=== PATIENT | female | born 1985 | race Caucasian/White ===

== ENCOUNTER → 2020-05-21 | Outpatient (CLI) | payer OTHER ==
[~2020-05-21] MED LIST: AMITRIPTYLINE H10 M1 PO; AMOXICILLIN 50500 M1; FLUOXETINE HCL40 MG PO; NORCO 5-325 TA1 EACH PO; PERCOCET 5-3251 EACH PO; VENLAFAXIN75 MG/1 T1 PO; XANAX1 MG PO
--- NOTE | 2020-06-05 19:58 | MCT ---
[facility] [place] [place] [address] METHACHOLINE CHALLENGE TEST Name: ILYA MARS Room #: [facility]#: [id number] Admission: 05/21/20 Attend Phys: Rik Yeboah MD Discharge: Date of : 81 Report #: [id number] THIS REPORT FOR: //name// COPIES FOR: AGE: 34 SEX/RACE: F/C Height: in Exam Date: Weight: lbs BTPS: X >> PRE BRONCHODILATOR: PREDICTED BEST %PRED FORCED VITAL CAPACITY (FRC) L LPM % FORCED EXP VOL/SEC (FEV1) L FEV/FVC % MAX MID-EXP FLOW (FEF 25-75) L/SEC L/SEC % PEAK EXP FLOW RATE (FEF MAX) L/MIN L/MIN MED-VC RATIO (FEF 50/FEF 50) .09 Baseline: Phenol Saline Level 1: 0.025 mg/ml BEST %PRED %CHANGE BEST %PRED %CHANGE FVC 4.60 L 103 % % FVC 4.98 L 112 % 8 % FEV1 3.87 L 111 % % FEV1 3.77 L 108 % -3 % Level 2: 0.25 mg/ml Level 3: 2.5 mg/ml BEST %PRED %CHANGE BEST %PRED %CHANGE FVC 4.82 L 108 % 5 % FVC 4.51 L 101 % -2 % FEV1 3.91 L 112 % -6 % FEV1 3.65 L 105 % -6 % . Level 4: 10 mg/ml Level 5: 25 mg/ml BEST %PRED %CHANGE BEST %PRED %CHANGE FVC 3.68 L 83 % -20 % FVC L % % FEV1 2.69 L 77 % -31 % FEV1 L % % Post Bronchodilator: 1st Treatment Post Bronchodilator: 2nd Treatment BEST %PRED %CHANGE BEST %PRED %CHANGE FVC 4.62 L 104 % 0 % FVC L % % FEV1 3.75 L 108 % -3 % FEV1 L % % Post Bronchodilator: 3rd Treatment BEST %PRED %CHANGE [facility] [address] [place] [address] METHACHOLINE CHALLENGE TEST Name: ILYA MARS Jenna Room #: [facility]#: [id number] Admission: 05/21/20 Attend Phys: Rik Yeboah MD Discharge: Date of : 81 Report #: [id number] FVC L % % FEV1 L % % >> INTERPRETATION: Pre-methacholine challenge test spirometry was normal. At the fourth level of methacholine concentration, the patient had a drop of -30% in FEV1. Post-methacholine challenge test spirometry showed flow returning near baseline. IMPRESSION: Positive methacholine challenge test at level 4. Clinical correlation is recommended. <ELECTRONICALLY SIGNED> By: Niko Campos MD 06/05/20 1958 MD brent Crespo
== END ==
LOC: PUL 07:39 → EDSTATUS 07:41 → PUL 08:52
PROVIDERS: ATTEND Internal Medicine
DX: R94.2 Abnormal results of pulmonary function studies (principal); R06.02 Shortness of breath; Z88.8 Allergy status to other drugs, medicaments and biological substances

== ENCOUNTER 2021-03-08 16:11 | Emergency (ER) | payer OTHER ==
[~2021-03-08] VITALS: Ht 180.3 cm; Wt 88.5 kg
[2021-03-08] MEDS ORDERED: CORLANOR7.5 MG PO (16:56)
[2021-03-08] MEDS ORDERED: FLEXERIL PO (16:57)
[2021-03-08] MEDS ORDERED: ALPRAZOLAM1 MG PO (16:57)
[2021-03-08] MEDS ORDERED: METOPROLOL SUCC50 MG PO (16:57)
[2021-03-08] MEDS ORDERED: PRAZOSIN HCL1 MG PO (16:57)
[2021-03-08] MEDS ORDERED: ZOLPIDEM TARTRA10 MG PO (16:57)
[2021-03-08] MEDS ORDERED: MELOXICAM7.5 MG PO (16:58)
[2021-03-08] MEDS ORDERED: FAMOTIDINE40 MG PO (16:58)
[2021-03-08] MEDS ORDERED: BUSPIRONE HCL10 MG PO (16:58)
[2021-03-08] MEDS ORDERED: OMEPRAZOLE 20 M20 M1 PO (16:58)
[2021-03-08] MEDS ORDERED: PROTONIX40 M2 PO (16:59)
[2021-03-08] MEDS ORDERED: MACROBID 100 M100 M1 PO (17:00)
[2021-03-08 17:09] LABS: URINE BILIRUBIN NEGATIVE (Negative); URINE BLOOD NEGATIVE (Negative); URINE CLARITY CLEAR; URINE COLOR YELLOW; URINE GLUCOSE-RANDOM* NEGATIVE (Negative); URINE KETONES NEGATIVE (Negative); URINE LEUKOCYTES-REFLEX NEGATIVE (Negative); URINE NITRITE-REFLEX NEGATIVE (Negative); URINE PROTEIN (DIPSTICK) NEGATIVE (Negative); URINE SPECIFIC GRAVITY >= 1.030 (1.005-1.035); URINE UROBILINOGEN 0.2 E.U./dl (0.2-1.0)
[2021-03-08 17:48] LABS: ABSOLUTE NEUTROPHILS 2.5 thou/uL (1.4-8.2); BASOPHILS 0.5 % (0.0-2.0); CALCIUM 8.7 mg/dL (8.5-10.1); EOSINOPHILS 3.2 % (0.0-3.0); HEMATOCRIT 40.3 % (37.0-47.0); HEMOGLOBIN 13.6 gm/dL (12.0-15.0); LYMPHOCYTES 37.1 % (24.0-44.0); MCH 31.6 pg (26.0-34.0); MCHC 33.7 g/dL (28.0-37.0); MCV 93.9 fL (80.0-100.0); MONOCYTES 11.6 % (1.0-8.0); PLATELET COUNT 249 thou/uL (150-400); POLYS 47.6 % (36.0-66.0); POTASSIUM 4.1 mmol/L (3.5-5.1); RBC 4.29 mil/uL (4.20-5.00); RDW 12.9 % (10.5-14.5); WBC 5.2 thou/uL (4.0-11.0)
[2021-03-08 17:54] LABS: ALBUMIN 3.7 g/dL (3.4-5.0); TOTAL BILIRUBIN 0.2 mg/dL (0.2-1.0); TOTAL PROTEIN 6.8 g/dL (6.4-8.2)
[2021-03-08] MEDS ORDERED: MOBIC7.5 MG PO (21:54)
[2021-03-08] MEDS ORDERED: APAP W/CODEINE1 TA2 PO (21:54)
[2021-03-08 22:05] VITALS: BP 121/65
== END 2021-03-08 22:05 | disposition home or self-care (01) ==
LOC: ER 16:11
PROVIDERS: Physician Assistant
DX: R10.11 Right upper quadrant pain (principal); Z90.710 Acquired absence of both cervix and uterus; Z98.890 Other specified postprocedural states; Z79.1 Long term (current) use of non-steroidal anti-inflammatories (NSAID); Z79.899 Other long term (current) drug therapy; Z79.891 Long term (current) use of opiate analgesic; Z88.5 Allergy status to narcotic agent; Z88.8 Allergy status to other drugs, medicaments and biological substances

== ENCOUNTER 2021-03-15 18:57 | Emergency (ER) | payer OTHER ==
[~2021-03-15] VITALS: Ht 180.3 cm; Wt 89.4 kg
[~2021-03-15 18:57] MED LIST changes: +ALPRAZOLAM1 MG PO; +APAP W/CODEINE1 TA2 PO; +BUSPIRONE HCL10 MG PO; +CORLANOR7.5 MG PO; +FAMOTIDINE40 MG PO; +FLEXERIL PO; +MACROBID 100 M100 M1 PO; +MELOXICAM7.5 MG PO; +METOPROLOL SUCC50 MG PO; +MOBIC7.5 MG PO; +OMEPRAZOLE 20 M20 M1 PO; +PRAZOSIN HCL1 MG PO; +PROTONIX40 M2 PO; +ZOLPIDEM TARTRA10 MG PO
[2021-03-15 19:57] LABS: ABSOLUTE NEUTROPHILS 4.8 thou/uL (1.4-8.2); BASOPHILS 0.6 % (0.0-2.0); EOSINOPHILS 1.6 % (0.0-3.0); HEMOGLOBIN 13.7 gm/dL (12.0-15.0); LYMPHOCYTES 28.2 % (24.0-44.0); MCH 31.3 pg (26.0-34.0); MCHC 33.5 g/dL (28.0-37.0); MCV 93.6 fL (80.0-100.0); MONOCYTES 8.4 % (1.0-8.0); PLATELET COUNT 328 thou/uL (150-400); POLYS 61.2 % (36.0-66.0); RBC 4.39 mil/uL (4.20-5.00); RDW 13.4 % (10.5-14.5); WBC 7.9 thou/uL (4.0-11.0)
[2021-03-15 20:11] LABS: TOTAL BILIRUBIN 0.3 mg/dL (0.2-1.0); TOTAL PROTEIN 7.4 g/dL (6.4-8.2)
[2021-03-15 20:12] LABS: POTASSIUM 4.4 mmol/L (3.5-5.1)
[2021-03-15 21:53] LABS: BE(vivo) -0.7 mmol/L (-2 to +3); HCO3 23.1 mmol/L (22.0-26.0); PCO2 35.3 mmHg (35.0-45.0); PO2 76.2 mmHg (80.0-100.0); pH 7.433 (7.360-7.450); sO2 95.7 % (92.0-98.0)
[2021-03-15] MEDS ORDERED: PREDNISONE50 MG PO (22:58)
[2021-03-15] MEDS ORDERED: NORCO5 PO (23:01)
[2021-03-15 23:20] VITALS: BP 154/84
--- NOTE | 2021-03-18 07:27 | EKG ---
[place] [address] [employer] [address] ELECTROCARDIOGRAM REPORT Name: ILYA MARS Room #: [facility]#: [id number] Admission: 03/15/21 Attend Phys: Discharge: 03/15/21 Date of : 81 Report #: [id number] [facility] ED Test Date: 2021-03-15 Test Time: 19:05:49 Pat Name: ILYA MARS Department: Room: Gender: F Front Desk Administrator: : 1985 Requested By: Jasmin Escalera Order Number: [id number] MD: Jmimy Murdock Measurements Intervals [place] Rate: 84 P: 55 OH: 200 QRS: 36 QRSD: 93 T: 3 QT: 370 QTc: 438 Interpretive Statements Sinus rhythm Compared to ECG 03/24/2009 09:28:06 Sinus bradycardia no longer present Electronically Signed On 03-18-2021 7:27:50 CDT by Jimmy Murdock [email or web address] <ELECTRONICALLY SIGNED> By: Jimmy Murdock MD, [facility] 03/18/21 0727 1905 1905 Jimmy Murdock MD, FACC /EPI
== END 2021-03-15 23:24 | disposition home or self-care (01) ==
LOC: ER 18:57
PROVIDERS: Emergency Medicine
DX: R07.89 Other chest pain (principal); R06.02 Shortness of breath; Z98.890 Other specified postprocedural states; Z90.710 Acquired absence of both cervix and uterus; Z79.1 Long term (current) use of non-steroidal anti-inflammatories (NSAID); Z79.891 Long term (current) use of opiate analgesic; Z79.899 Other long term (current) drug therapy; Z88.5 Allergy status to narcotic agent; Z88.8 Allergy status to other drugs, medicaments and biological substances

== ENCOUNTER → 2021-04-10 | Outpatient (CLI) | payer OTHER ==
[~2021-04-10] VITALS: Ht 180.3 cm; Wt 88.5 kg
[~2021-04-10] MED LIST changes: +HYDROCODON-ACE1 EAC5 PO; +HYDROCODON-ACE1 EAC7 PO; +LOW DOSE ASPIRI81 M1 PO; +MOBIC15 MG PO; +NORCO5 PO; +PREDNISONE50 MG PO; +PROAIR HFA8.5 GM
[2021-04-10 08:51] VITALS: BP 126/74
--- NOTE | 2021-04-10 09:24 | NUR ---
Pain Clinic Assessment: 1. History of Osteoarthritis: Not Applicable History of Rheumatoid Arthritis: Not Applicable 2. Height: 5 ft. 11 in. 180.3 cm. Weight: 195.0 lb. oz. 88.452 kg. Patient's BMI: 27.2 3. Vital Signs: BP: 126/74 Pulse: 85 Resp: 14 Temp: 02 Sat: 100 ECG Mon: 4. Pain Intensity: 7 5. Fall Risk: Dizziness: Y Needs help standing or walking: N Fallen in the last 3 months: N Fall risk comments: 6. Patient on Blood Thinner: None 7. History of Hypertension: N 8. Opioid Therapy greater than 6 weeks: Opiate Contract Signed: 9. Risk Assessment Tool Provided: 3 LOW RISK 10. Functional Assessment Tool: 11. Recreational Drug Use: Never Drug Type: Tobacco Use: Never Smoker Tobacco Type: Amount or Packs/day: How Many Years: Alcohol Use: Yes Frequency: Special Occasions Quant: 3-4
== END ==
LOC: PAIN 08:18
PROVIDERS: ATTEND Anesthesiology Pain Medicine
DX: J98.11 Atelectasis (principal); J90 Pleural effusion, not elsewhere classified; J47.9 Bronchiectasis, uncomplicated; J98.4 Other disorders of lung; R01.1 Cardiac murmur, unspecified; R07.9 Chest pain, unspecified; Z95.0 Presence of cardiac pacemaker; Z90.710 Acquired absence of both cervix and uterus

== ENCOUNTER → 2021-05-01 | Outpatient (CLI) | payer OTHER ==
[~2021-05-01] VITALS: Ht 165.1 cm; Wt 93.4 kg
[2021-05-01 09:42] VITALS: BP 129/73
--- NOTE | 2021-05-01 10:08 | NUR ---
Pain Clinic Assessment: 1. History of Osteoarthritis: Not Applicable History of Rheumatoid Arthritis: Not Applicable 2. Height: 5 ft. 5 in. 165.1 cm. Weight: 206.0 lb. oz. 93.441 kg. Patient's BMI: 34.3 3. Vital Signs: BP: 129/73 Pulse: 91 Resp: 14 Temp: 02 Sat: 98 ECG Mon: 4. Pain Intensity: 8 5. Fall Risk: Dizziness: N Needs help standing or walking: N Fallen in the last 3 months: N Fall risk comments: 6. Patient on Blood Thinner: None 7. History of Hypertension: N 8. Opioid Therapy greater than 6 weeks: Opiate Contract Signed: 9. Risk Assessment Tool Provided: 3 LOW RISK 10. Functional Assessment Tool: 11. Recreational Drug Use: Never Drug Type: Tobacco Use: Never Smoker Tobacco Type: Amount or Packs/day: How Many Years: Alcohol Use: Yes Frequency: Special Occasions Quant: 2
== END ==
LOC: PAIN 07:11
PROVIDERS: ATTEND Anesthesiology Pain Medicine
DX: R07.9 Chest pain, unspecified (principal); J98.4 Other disorders of lung; R01.1 Cardiac murmur, unspecified; J90 Pleural effusion, not elsewhere classified; Z90.49 Acquired absence of other specified parts of digestive tract; Z90.710 Acquired absence of both cervix and uterus; Z95.0 Presence of cardiac pacemaker; Z88.8 Allergy status to other drugs, medicaments and biological substances; Z79.82 Long term (current) use of aspirin; Z79.899 Other long term (current) drug therapy

== ENCOUNTER 2021-05-02 10:11 | Emergency (ER) | payer OTHER ==
[~2021-05-02] VITALS: Ht 180.3 cm; Wt 88.5 kg
[2021-05-02 12:40] VITALS: BP 125/74
== END 2021-05-02 12:40 | disposition home or self-care (01) ==
LOC: ER 10:11
DX: S50.02XA Contusion of left elbow, initial encounter (principal); S20.212A Contusion of left front wall of thorax, initial encounter; S40.011A Contusion of right shoulder, initial encounter; S30.0XXA Contusion of lower back and pelvis, initial encounter; F07.81 Postconcussional syndrome; Z90.49 Acquired absence of other specified parts of digestive tract; Z90.89 Acquired absence of other organs; Z90.710 Acquired absence of both cervix and uterus; Z98.890 Other specified postprocedural states; Z79.82 Long term (current) use of aspirin; Z79.51 Long term (current) use of inhaled steroids; Z79.84 Long term (current) use of oral hypoglycemic drugs; Z79.891 Long term (current) use of opiate analgesic; Z79.1 Long term (current) use of non-steroidal anti-inflammatories (NSAID); Z79.899 Other long term (current) drug therapy; Z88.5 Allergy status to narcotic agent; Z88.8 Allergy status to other drugs, medicaments and biological substances; Y04.0XXA Assault by unarmed brawl or fight, initial encounter; Y93.89 Activity, other specified; Y92.89 Other specified places as the place of occurrence of the external cause; Y99.8 Other external cause status

== ENCOUNTER → 2021-05-22 | Outpatient (CLI) | payer OTHER ==
[~2021-05-22] VITALS: Ht 165.1 cm; Wt 90.2 kg
[2021-05-22 11:25] VITALS: BP 133/85
--- NOTE | 2021-05-22 11:37 | NUR ---
Pain Clinic Assessment: 1. History of Osteoarthritis: Not Applicable History of Rheumatoid Arthritis: Not Applicable 2. Height: 5 ft. 5 in. 165.1 cm. Weight: 198.8 lb. oz. 90.175 kg. Patient's BMI: 33.1 3. Vital Signs: BP: 133/85 Pulse: 75 Resp: 14 Temp: 02 Sat: 98 ECG Mon: 4. Pain Intensity: 2 5. Fall Risk: Dizziness: N Needs help standing or walking: N Fallen in the last 3 months: N Fall risk comments: 6. Patient on Blood Thinner: None 7. History of Hypertension: N 8. Opioid Therapy greater than 6 weeks: Opiate Contract Signed: 9. Risk Assessment Tool Provided: 3 LOW RISK 10. Functional Assessment Tool: 11. Recreational Drug Use: Never Drug Type: Tobacco Use: Never Smoker Tobacco Type: Amount or Packs/day: How Many Years: Alcohol Use: No Frequency: Quant:
== END ==
LOC: PAIN 08:23
PROVIDERS: ATTEND Anesthesiology Pain Medicine
DX: J98.4 Other disorders of lung (principal); J90 Pleural effusion, not elsewhere classified; R01.1 Cardiac murmur, unspecified; Z95.0 Presence of cardiac pacemaker; Z90.710 Acquired absence of both cervix and uterus; R07.9 Chest pain, unspecified; R06.02 Shortness of breath; Z88.8 Allergy status to other drugs, medicaments and biological substances; Z79.899 Other long term (current) drug therapy

== ENCOUNTER → 2021-06-26 | Outpatient (CLI) | payer OTHER ==
[~2021-06-26] VITALS: Ht 165.1 cm; Wt 0.5 kg
[2021-06-26 08:02] VITALS: BP 140/86
--- NOTE | 2021-06-26 08:09 | NUR ---
Pain Clinic Assessment: 1. History of Osteoarthritis: Not Applicable History of Rheumatoid Arthritis: Not Applicable 2. Height: 5 ft. 5 in. 165.1 cm. Weight: lb. 19 oz. 0.538 kg. Patient's BMI: 3. Vital Signs: BP: 140/86 Pulse: 80 Resp: 20 Temp: 02 Sat: 100 ECG Mon: 4. Pain Intensity: 8 5. Fall Risk: Dizziness: N Needs help standing or walking: N Fallen in the last 3 months: Y Fall risk comments: 6. Patient on Blood Thinner: None 7. History of Hypertension: N 8. Opioid Therapy greater than 6 weeks: Opiate Contract Signed: 9. Risk Assessment Tool Provided: 3 LOW RISK 10. Functional Assessment Tool: 11. Recreational Drug Use: Never Drug Type: Tobacco Use: Never Smoker Tobacco Type: Amount or Packs/day: How Many Years: Alcohol Use: No Frequency: Quant:
== END ==
LOC: PAIN 07:31
PROVIDERS: ATTEND Clinical Nurse Specialist Adult Health
DX: G89.29 Other chronic pain (principal); M54.50 Low back pain, unspecified; R07.9 Chest pain, unspecified; J93.83 Other pneumothorax; Z88.8 Allergy status to other drugs, medicaments and biological substances; Z79.82 Long term (current) use of aspirin; Z79.899 Other long term (current) drug therapy